=== PATIENT | male | born 1990 | race Caucasian/White ===

== ENCOUNTER 2017-08-18 17:58 | Emergency (ER) | payer OTHER ==
[~2017-08-18] VITALS: Ht 175.3 cm; Wt 54.0 kg
[~2017-08-18 17:58] MED LIST: BACT2OIN TOP; CYCL5TAB PO; DICL75 PO; ZOFR4TAB3 SL
[2017-08-18 18:17] VITALS: PULSE 79; RESP 16; TEMP 100; O2SAT 99
[2017-08-18] MEDS ORDERED: ROBA750T PO (18:51)
[2017-08-18] MEDS ORDERED: IBUP-232 PO (18:51)
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
== END 2017-08-18 19:04 | disposition home or self-care (01) ==
LOC: PHEFT 17:58
DX: S39.012A Strain of muscle, fascia and tendon of lower back, initial encounter (principal); V43.52XA Car driver injured in collision with other type car in traffic accident, initial encounter
CPT/HCPCS: 99283